=== PATIENT | female | born 1945 | race Caucasian/White ===

== ENCOUNTER 2020-05-13 09:03 | Outpatient (CLI) | payer MEDICARE, SELFPAY ==
--- NOTE | ~2020-05-13 | US_ITS ---
EXAMINATION: US pelvic complete EXAM DATE: 05/13/2020 09:59 INDICATION: Vaginal prolapse after hysterectomy. TECHNIQUE: Pelvic transabdominal sonogram was performed. There are multiple grayscale and Doppler im ages available for interpretation. There is no prior study for comparison. FINDINGS: The bladder is unremarkable. No free pelvic fluid identified. Uterus not identified. No adn exal mass identified. IMPRESSION: Unremarkable bladder. Reviewed, dictated and finalized at location B. EL POST WEIGHER IMPRESSION: Unremarkable bladder.
== END 2020-05-13 09:04 | disposition home or self-care (01) ==
PROVIDERS: PCP Family Medicine; Visit Provider Urology
DX: N32.81 Overactive bladder (principal)
CPT/HCPCS: 76856